=== PATIENT | female | born 1960 | race Caucasian/White ===

== ENCOUNTER → 2019-04-01 14:50 | Outpatient (BNVA) | payer OTHER, SELFPAY | PROVIDERS: Visit Provider Nurse Practitioner | DX: K04.7 Periapical abscess without sinus (principal); J11.1 Influenza due to unidentified influenza virus with other respiratory manifestations | CPT/HCPCS: 87804 ==

== ENCOUNTER 2019-09-21 15:42 | Emergency (ER) | payer SELFPAY ==
[2019-09-21 15:53] VITALS: BP 199/89; PULSE 81; RESP 14; TEMP 37.1; O2SAT 97; BMI 34.7
--- NOTE | 2019-09-21 16:07 | CTR_ITS ---
PROCEDURE INFORMATION: Exam: CT Abdomen And Pelvis With Contrast Exam date and time: 09/21/2019 4:26 PM Age: 58 years old Clinical indication: Abdominal pain; Localized; Prior surgery; Surgery date: 6+ months; Surgery type: Gb, appy, c-sect; Patient HX: C/O lower abd and flank pain w hematuria; Additional info: Lower abdominal pain TECHNIQUE: Imaging protocol: Computed tomography of the abdomen and pelvis with intravenous contrast. Radiation optimization: All CT scans at this facility use at least one of these dose optimization techniques: automated exposure control; mA and/or kV adjustment per patient size (includes targeted exams where dose is matched to clinical indication); or iterative reconstruction. Contrast material: OMNI 300; Contrast volume: 95 ml; Contrast route: INTRAVENOUS (IV); COMPARISON: US gall bladder [id number] 03/13/2017 7:49 AM RADIATION DOSE METRICS: Total DLP (mGy-cm): 1138.81 FINDINGS: Liver: There is no focal abnormality within the liver. Gallbladder and bile ducts: There has been a cholecystectomy. Pancreas: The pancreas is normal. Spleen: The spleen is normal. Adrenals: The adrenal glands are normal. Kidneys and ureters: The kidneys are normal. There is no evidence of renal or ureteral calcifications. There is no evidence of hydronephrosis. Stomach and bowel: There is no evidence of colitis/diverticulitis. Appendix: Not identified Intraperitoneal space: There is no evidence of free intraperitoneal fluid. Vasculature: Unremarkable. No abdominal aortic aneurysm. Lymph nodes: Unremarkable. No enlarged lymph nodes. Bladder: There is severe thickening of the urinary bladder wall with mucosal enhancement in some stranding in the adjacent fat. These findings most likely represent cystitis or urinary tract infection. Correlation with clinical findings is suggested. Reproductive: Unremarkable as visualized. Bones/joints: Unremarkable. No acute fracture. Soft tissues: Unremarkable. CT/CT abdomen pelvis w con* [id number] IMPRESSION: Findings which are worrisome for cystitis or urinary tract infection. Radiation Dose CTDIVOL = (mGy): DLP = 1138.81 (mGy-cm)
--- NOTE | 2019-09-21 16:10 | ED_ITS ---
HPI - Female Genitourinary General: Chief complaint: Urogenital-Female Stated complaint: urination problems/bloody Time Seen by Provider: 09/21/19 15:59 Source: patient Mode of arrival: ambulatory Limitations: no limitations History of Present Illness: HPI Narrative: Nichelle is a nice 58-year-old female who comes in with a complaint of abrupt onset lower abdominal pain that started yesterday. Patient states that this pain feels like when she is had a UTI in the past. She denies any vaginal discharge or bleeding. She is noticed blood in her urine but denies any flank pain but does have lower back pain. She is unaware of anything that makes her symptoms better or worse. She denies any fevers or chills or nausea or vomiting. Patient states she is perimenopausal. Her appendix is gone and she has had her gallbladder out and a tubal ligation. Associated symptoms: Reports abdominal pain; Deny headache(s), nausea or syncope Review of Systems Const: Denies: fever(s), chills, body aches, fatigue, malaise or diaphoresis Eyes: Denies: change in vision, blurry vision, blind spots, photophobia, eye discharge or eye redness ENMT: Denies: throat pain, odynophagia, hoarseness, swelling of lips/tongue, oral sores, ear or mastoid pain, ear discharge, change in hearing or nasal di scharge Card: Denies: chest pain, palpitations, irregular heart rhythm, edema, lightheadedness, syncope, pre-syncope, dyspnea on exertion or orthopnea Resp: Denies: dyspnea, productive cough, non-productive cough, wheezing, hemoptysis or chest congestion GI: Reports: abdominal pain; Denies: nausea, vomiting, hematemesis, coffee ground emesis, heartburn, diarrhea, constipation, GI cramping, hematochezia or melena : Reports: difficulty voiding, dysuria, urinary frequency and urinary urgency; Denies: flank pain Musc: Denies: neck pain, back pain, extremity pain, extremity swelling, joint pain, joint swelling, joint redness, joint warmth or joint stiffness Skin/Breast: Denies: rash, pruritus, erythema, skin tenderness or jaundice Neuro: Denies: headache(s), numbness in extremities, weakness in extremities, sensory changes, lack of coordination, difficulty walking, dizziness, vertigo, confusion, Slurred speech present or seizure-like activity Abel/Lymph: Denies: easy bruising, easy bleeding, petechiae, purpura or enlarged lymph nodes All/Imm: Denies: urticaria, throat swelling, tongue swelling, facial swelling or acute wheezing PFSH ED PFSH: Medical History H/O chronic hepatitis Patient [place] with Harvoni in 2018 [place] [facility] [place] Herpes simplex Obesity Vitamin D deficiency Physical Exam Const: COMMON NORMALS: no acute distress, patient oriented x3, no limitations, healthy appearing and well nourished GENERAL APPEARANCE: cooperative, well kempt and well developed HENMT: COMMON NORMALS: normocephalic, atraumatic, external ears normal, EAC's normal and Normal external nose present HEAD & SCALP: normal to inspection, normocephalic and atraumatic FACE & SINUS: normal facial exam and face symmetric NOSE: Normal external nose present and Normal nares present EXTERNAL EAR: Yes external ears normal EXTERNAL AUDITORY CANAL: EAC's normal MOUTH: Normal oral and palatal mucosa present, lip normal and tongue normal Eye: COMMON NORMALS: Equal, round and reactive pupils present and conjunctivae normal GENERAL EYE: appearance normal, both eyes and all related structures ALIGNMENT: Yes alignment normal PERIORBITAL: periorbital findings normal EYELID: eyelids normal CONJUNCTIVA: Yes conjunctivae normal SCLERA: sclerae normal PUPIL: Yes Equal, round and reactive pupils present Neck/C-Spine: COMMON NORMALS: full ROM, no lymphadenopathy, supple, no meningeal signs and no JVD GENERAL: Yes normal visual inspection and Yes trachea midline Chest: COMMONS NORMALS: normal inspection of the chest and normal palpation of entire chest wall Resp: COMMON NORMALS: normal respiratory effort, No retractions and No use of accessory muscles EFFORT & INSPECTION: Yes able to speak in complete sentences and Yes symmetric chest movement AUSCULTATION: no crackles, no rales, no rhonchi and no wheezes Cardio: COMMON NORMALS: no JVD, regular rate, regular rhythm, S1 normal heart sound present and S2 normal heart sound present RATE: regular rate RHYTHM: regular rhythm HEART SOUNDS: S1 normal heart sound present, S2 normal heart sound present, no click, no gallops, no murmurs, no rubs and abnormal split S2 GI: COMMON NORMALS: Soft to palpation and No hepatosplenomegaly present PALPATION: Yes Soft to palpation, Yes Tenderness to palpation present (GI) (Suprapubic area), No Guarding due to palpation present (GI), No Rigid due to palpation, Yes No hepatosplenomegaly present, No Hernia present, No Palpable mass present and No Pulsatile mass present : COMMON NORMALS: Yes no CVA tenderness BLADDER/KIDNEY EXAM: Yes no CVA tenderness EXTERNAL FEMALE EXAM: No Hernia present Back/Pelvis: COMMON NORMALS: no CVA tenderness, thoracic and lumbar spine normal to inspection, no thoracic nor lumbar tenderness and thoraco-lumbar ROM normal Extremity: COMMON NORMALS: normal to inspection, full ROM, capillary refill normal, no joint enlargement, no clubbing, cyanosis or edema and no calf tenderness Neuro: COMMON NORMALS: patient oriented x3, CN's II-XII intact bilaterally, moves all extremities, no focal motor deficits and no sensory deficits noted MENINGEAL SIGNS: Yes no meningeal signs SPEECH: speech normal Psych: COMMON NORMALS: mental status grossly normal, Normal thought process present, cooperative, normal affect, speech normal and activity/motor behavior normal APPEARANCE: Yes well kempt SPEECH: Yes normal speech THOUGHT PROCESS: Normal thought process present Skin: COMMON NORMALS: no rashes or lesions noted, turgor normal, no jaundice, no petechiae and no mottling GENERAL SKIN EXAM: no rashes or lesions noted and turgor normal Course Vital Signs: Vital signs: Vital Signs Temperature 98.7 F 09/21/19 15:53 Pulse Rate 81 09/21/19 15:53 Respiratory Rate 15 09/21/19 16:23 Blood Pressure 199/89 09/21/19 15:53 Pulse Oximetry 95 09/21/19 16:23 MDM - Female MDM Narrative: Medical decision making narrative: Patient is feeling better and is ready to go home. There is no sign of diverticulitis or acute intra- abdominal catastrophe. I will go ahead and discharge the patient home with Pyridium, Omnicef and I also have her follow-up with her primary care physician. Patient agrees this plan and denies having other questions or concerns. Lab Data: Attestation: I reviewed the patient's lab results. Labs: Lab Results 08/09/20 08/09/20 08/09/20 Range/Units 16:05 16:15 16:15 WBC 13.5 H (4.0-10.0) 10^3/ uL RBC 4.73 (4.1-5.3) 10^6/u L Hgb 13.8 (11.5-15.3) g/dL Hct 41.7 (37.0-47.0) % MCV 88.2 (81-99) fL MCH 29.2 (28.0-34.0) pg MCHC 33.1 (30.0-36.0) g/dL RDW 11.9 L (12.1-15.1) % Plt Count 208 (130-400) 10^3/c mm MPV 11.8 H (7.4-10.4) fL Neut % (Auto) 79.0 % Lymph % (Auto) 13.4 % Pinal % (Auto) 6.0 % Eos % (Auto) 1.0 % Baso % (Auto) 0.3 % Neut # (Auto) 10.62 H (1.8-7.7) 10^3/u L Lymph # (Auto) 1.8 (0.8-4.8) 10^3/u L Pinal # (Auto) 0.8 (0.2-0.9) 10^3/u L Eos # (Auto) 0.1 (0.0-0.8) 10^3/u L Baso # (Auto) 0.0 (0.0-0.1) 10^3/u L Nucleated RBC % (a uto) 0 % Nucleated RBCs # 0.0 /100WBC Sodium Cancelled Potassium Cancelled Chloride Cancelled Carbon Dioxide Cancelled Anion Gap Cancelled BUN Cancelled Creatinine Cancelled GFR Calculation Cancelled Glucose Cancelled Calculated Osmolal ity Cancelled Lactate Calcium Cancelled Total Bilirubin Cancelled AST Cancelled ALT Cancelled Alkaline Phosphata se Cancelled Total Protein Cancelled Albumin Cancelled Globulin Cancelled Urine Color Straw (Yellow) Urine Appearance Cloudy (CLEAR) Urine pH 5 (5-7) Ur Specific Gravit y 1.015 (1.005-1.030) Urine Protein 1+ H (Negative) Urine Glucose (UA) Norm (Normal) Urine Ketones Negative (Negative) Urine Blood 3+ H (Negative) Urine Nitrate Negative (Negative) Urine Bilirubin Neg (NEGATIVE) Urine Urobilinogen Norm (Negative) mg/dL Ur Leukocyte Ambreen ase 2+ H (Negative) Urine RBC 10-15 H (0-2) /hpf Urine WBC Too numerous to c nt H (0-5) /hpf Ur Squamous Epith Cells 5-10 H (0-5) Amorphous Sediment Not Reportable Urine Bacteria 1+ H (NONE) 09/21/19 09/21/19 09/21/19 Range/Units 16:15 16:36 16:36 WBC (4.0-10.0) 10^3/ uL RBC (4.1-5.3) 10^6/u L Hgb (11.5-15.3) g/dL Hct (37.0-47.0) % MCV (81-99) fL MCH (28.0-34.0) pg MCHC (30.0-36.0) g/dL RDW (12.1-15.1) % Plt Count (130-400) 10^3/c mm MPV (7.4-10.4) fL Neut % (Auto) % Lymph % (Auto) % Pinal % (Auto) % Eos % (Auto) % Baso % (Auto) % Neut # (Auto) (1.8-7.7) 10^3/u L Lymph # (Auto) (0.8-4.8) 10^3/u L Pinal # (Auto) (0.2-0.9) 10^3/u L Eos # (Auto) (0.0-0.8) 10^3/u L Baso # (Auto) (0.0-0.1) 10^3/u L Nucleated RBC % (a uto) % Nucleated RBCs # /100WBC Sodium 136 Potassium 4.2 Chloride 103 Carbon Dioxide 22 Anion Gap 15.2 BUN 16 Creatinine 0.7 GFR Calculation 86.6 L Glucose 97 Calculated Osmolal ity 278 L Lactate Cancelled 0.8 Calcium 9.9 Total Bilirubin 0.7 AST 14 ALT 10 Alkaline Phosphata se 80 Total Protein 7.2 Albumin 4.8 Globulin 2.4 Urine Color (Yellow) Urine Appearance (CLEAR) Urine pH (5-7) Ur Specific Gravit y (1.005-1.030) Urine Protein (Negative) Urine Glucose (UA) (Normal) Urine Ketones (Negative) Urine Blood (Negative) Urine Nitrate (Negative) Urine Bilirubin (NEGATIVE) Urine Urobilinogen (Negative) mg/dL Ur Leukocyte Ambreen ase (Negative) Urine RBC (0-2) /hpf Urine WBC (0-5) /hpf Ur Squamous Epith Cells (0-5) Amorphous Sediment Urine Bacteria (NONE) Imaging Data: CT Abd/Pel: Attestation: I personally reviewed and interpreted this imaging study as follows: Radiologist's impression: [address] [address] [address] Scan Report Signed Patient: Nichelle Browning #: [id number] : 1960Acct#:[id number] Age/Sex: 58 / FADM Date: 09/21/19 Loc: ERRoom/Bed: Attending Dr: Ordering Provider/Ordering MD: Jennifer Cox DO Date of Service: 09/21/19 Procedure(s): CT abdomen pelvis w con* [id number] Accession Number(s): [id number] Report Number: [id number] PROCEDURE INFORMATION: Exam: CT Abdomen And Pelvis With Contrast Exam date and time: 09/21/2019 4:26 PM Age: 58 years old Clinical indication: Abdominal pain; Localized; Prior surgery; Surgery date: 6+ months; Surgery type: Gb, appy, c-sect; Patient HX: C/O lower abd and flank pain w hematuria; Additional info: Lower abdominal pain TECHNIQUE: Imaging protocol: Computed tomography of the abdomen and pelvis with intravenous contrast. Radiation optimization: All CT scans at this facility use at least one of these dose optimization techniques: automated exposure control; mA and/or kV adjustment per patient size (includes targeted exams where dose is matched to clinical indication); or iterative reconstruction. Contrast material: OMNI 300; Contrast volume: 95 ml; Contrast route: INTRAVENOUS (IV); COMPARISON: US gall bladder [id number] 03/13/2017 7:49 AM RADIATION DOSE METRICS: Total DLP (mGy-cm): 1138.81 FINDINGS: Liver: There is no focal abnormality within the liver. Gallbladder and bile ducts: There has been a cholecystectomy. Pancreas: The pancreas is normal. Spleen: The spleen is normal. Adrenals: The adrenal glands are normal. Kidneys and ureters: The kidneys are normal. There is no evidence of renal or ureteral calcifications. There is no evidence of hydronephrosis. Stomach and bowel: There is no evidence of colitis/diverticulitis. Appendix: Not identified Intraperitoneal space: There is no evidence of free intraperitoneal fluid. Vasculature: Unremarkable. No abdominal aortic aneurysm. Lymph nodes: Unremarkable. No enlarged lymph nodes. Bladder: There is severe thickening of the urinary bladder wall with mucosal enhancement in some stranding in the adjacent fat. These findings most likely represent cystitis or urinary tract infection. Correlation with clinical findings is suggested. Reproductive: Unremarkable as visualized. Bones/joints: Unremarkable. No acute fracture. Soft tissues: Unremarkable. CT/CT abdomen pelvis w con* [id number] IMPRESSION: Findings which are worrisome for cystitis or urinary tract infection. Radiation Dose CTDIVOL = (mGy): DLP = 1138.81 (mGy-cm) Dictated By:Fernando Martini Signed By:Jolene Martini Date/Time:09/21/191700 DD/ 99 Discharge Plan Discharge Patient Disposition: Home Clinical Impression: Cystitis Condition: Stable Prescriptions: New phenazopyridine [Pyridium] 200 mg tablet 200 mg PO Q8H PRN (Reason: pain) 3 Days Qty: 9 RF: 0 cefdinir 300 mg capsule 300 mg PO Q12H 10 Days Qty: 20 RF: 0 ondansetron HCl [Zofran] 4 mg tablet 4 mg PO Q6H PRN (Reason: nausea and vomiting) Qty: 20 RF: 0 No Action No Known Home Medications RF: 0 Discharge Orders: Discharge Order (Routine); Ordered 09/21/19 Ordered By: Jennifer Cox Referrals: PONCHO Foreman, LDR RN [Primary Care Provider] - 1-3 days Discharge Diet: Advance as tolerated Discharge Activity: Increase activity as tolerated Patient Instructions: Urinary Tract Infection in Women (ED) Activity Restrictions/Additional Instructions: Please return to the ER immediately for any of the signs or symptoms listed on your discharge instruction sheets, worsening/changing of your symptoms, you are not getting better as quickly as expected, or for ANY other cause or concerns. Coding Level of Care Code ED Sas Etl Developer for Araceli Fwd Exam Comprehensive
[2019-09-21] MEDS: ondansetron 2 mg/ML SDV 2 mL 4 MG IM (16:22)
[2019-09-21 16:23] VITALS: RESP 15; O2SAT 95
[2019-09-21] MEDS: morphine 4 mg/mL SDV 1 mL IVP (16:23)
[2019-09-21 16:25] LABS: Add Urine Microscopic? YES; Bilirubin Urine Neg (NEGATIVE); Blood Urine 3+ (Negative); Glucose Urine UA Norm (Normal); Ketones Urine Negative (Negative); Leukocyte Esterase Urine 2+ (Negative); Nitrate Urine Negative (Negative); Protein Urine 1+ (Negative); Specific Gravity, Urine 1.015 (1.005-1.030); Urine Appearance Cloudy (CLEAR); Urine Color Straw (Yellow); Urobilinogen Urine Norm (Negative); pH Urine 5 (5-7)
[2019-09-21 16:26] LABS: Add Urine Culture? Yes; Bacteria Urine 1+; WBC Urine TOO NUMEROUS TO CNT /hpf (0-5)
[2019-09-21 16:28] LABS: Basophils % 0.3 %; Eosinophils # 0.1 10^3/uL (0.0-0.8); Hematocrit 41.7 % (37.0-47.0); Hemoglobin 13.8 g/dL (11.5-15.3); Lymphocytes # 1.8 10^3/uL (0.8-4.8); Lymphocytes % 13.4 %; Mean Corpuscular HGB Conc 33.1 g/dL (30.0-36.0); Mean Corpuscular Hemoglobin 29.2 pg (28.0-34.0); Mean Corpuscular Volume 88.2 fL (81-99); Mean Platelet Volume 11.8 fL (7.4-10.4); Monocytes # 0.8 10^3/uL (0.2-0.9); Neutrophils # 10.62 10^3/uL (1.8-7.7); Nucleated Red Blood Cells % 0 %; Platelet Count 208 10^3/cmm (130-400); Red Blood Count 4.73 10^6/uL (4.1-5.3); Red Cell Distribution Width 11.9 % (12.1-15.1); White Blood Count 13.5 10^3/uL (4.0-10.0)
[2019-09-21] MEDS: iohexol 300 mg/mL 100 mL Btl IV (16:36)
[2019-09-21 16:59] LABS: Lactate (Lactic Acid level) 0.8 mmol/L (0.5-2.2)
[2019-09-21 17:00] LABS: Alanine Aminotransferase 10 U/L (0-33); Albumin Level 4.8 g/dL (3.5-5.2); Alkaline Phosphatase 80 IU/L (35-105); Anion Gap 15.2 (5-19); Aspartate Amino Transferase 14 U/L (0-32); Blood Urea Nitrogen 16 mg/dL (6-20); Calcium 9.9 mg/dL (8.5-10.5); Carbon Dioxide 22 mmol/L (22-29); Chloride 103 mmol/L (98-107); Globulin 2.4 g/dL (1.3-4.6); Glomerular Filtration Rate 86.6 mL/min (90-130); Glucose 97 mg/dL (65-115); Osmolality Calculated 278 mOsm/kg (285-295); Potassium 4.2 mmol/L (3.5-5.1); Sodium 136 mmol/L (136-145); Total Bilirubin 0.7 mg/dL (0.15-1.2); Total Protein 7.2 g/dL (6.6-8.7)
[2019-09-21] MEDS: cefTRIAXone 1,000 MG in sodium chloride 0.9% (plus) 50 ML 100 MG IV (17:16)
[2019-09-21] MEDS: phenazopyridine 100 mg Tablet 200 MG PO (17:18)
[2019-09-21 17:55] VITALS: BP 132/80; PULSE 70; RESP 16; O2SAT 98
[2019-09-21 18:25] LABS: Reflex Lactate Order REFLEX LACTIC ORDERD
== END 2019-09-21 17:55 | disposition home or self-care (01) ==
PROVIDERS: Emergency Medicine; Emergency Provider Emergency Medicine; PCP Nurse Practitioner Family
DX: N30.90 Cystitis, unspecified without hematuria (principal)
CPT/HCPCS: 12345; 36415; 74177; 80053; 81001; 83605; 85025; 87077; 87086; 87186; 96365; 96372; 96375; 99283; 99284; J0696; J2270; J2405; J7030; Q9967

== ENCOUNTER → 2019-10-03 09:01 | Outpatient (BNVA) | payer SELFPAY | PROVIDERS: PCP Nurse Practitioner Family; Visit Provider Nurse Practitioner Family | DX: M79.601 Pain in right arm (principal) | CPT/HCPCS: 73090 ==

== ENCOUNTER → 2020-02-19 11:51 | Outpatient (BNVA) | payer OTHER, SELFPAY | PROVIDERS: PCP Nurse Practitioner Family; Visit Provider Nurse Practitioner Family | DX: Z79.899 Other long term (current) drug therapy (principal); R53.83 Other fatigue; Z13.6 Encounter for screening for cardiovascular disorders; Z12.31 Encounter for screening mammogram for malignant neoplasm of breast; E66.9 Obesity, unspecified | CPT/HCPCS: 80053; 80061; 81003; 82306; 83036; 84443; 85025 ==

== ENCOUNTER 2020-04-08 13:04 | Outpatient (CLI) | payer OTHER, SELFPAY ==
--- NOTE | 2020-04-08 13:30 | MM_ITS ---
WS: [id number] Exam: [place] [id number] Date/Time of Exam: 04/08/2020 1:38 PM Reason For Exam: Z12.31 - Encounter for screening mammogram for malignant neoplasm of breast VIEWS: MLO and CC views both breasts. Comparison made with prior exam of 10/05/2014 and 05/19/2013. Findings: There was no sign of mass, architectural distortion or suspicious calcification in either breast. Sc attered fibroglandular densities MM/[place] [id number] Impression: BI-RADS: 2-Benign FOLLOW-UP: 1 Year Follow-up This mammogram was also analyzed by the Computer Aided Detection System R2 Imag e Readers' Advisory Service Librarian.
== END 2020-04-08 13:05 | disposition home or self-care (01) ==
LOC: RADSHAW 13:08
PROVIDERS: PCP Nurse Practitioner Family; Visit Provider Nurse Practitioner Family
DX: Z12.31 Encounter for screening mammogram for malignant neoplasm of breast (principal)
CPT/HCPCS: 77067

== ENCOUNTER → 2020-04-23 11:36 | Outpatient (BNVA) | payer OTHER, SELFPAY | PROVIDERS: PCP Nurse Practitioner Family; Visit Provider Nurse Practitioner Family | DX: Z87.19 Personal history of other diseases of the digestive system (principal) | CPT/HCPCS: 87522 ==

== ENCOUNTER → 2021-02-28 13:41 | Outpatient (BNVA) | payer OTHER, SELFPAY | PROVIDERS: PCP Nurse Practitioner Family; Visit Provider Nurse Practitioner Family | DX: Z20.822 Contact with and (suspected) exposure to COVID-19 (principal) | CPT/HCPCS: 87635 ==

== ENCOUNTER → 2021-04-21 11:10 | Outpatient (BNVA) | payer OTHER, SELFPAY | PROVIDERS: PCP Nurse Practitioner Family; Visit Provider Nurse Practitioner Family | DX: Z79.899 Other long term (current) drug therapy (principal); R53.83 Other fatigue; Z13.6 Encounter for screening for cardiovascular disorders; E55.9 Vitamin D deficiency, unspecified; Z12.31 Encounter for screening mammogram for malignant neoplasm of breast; D17.5 Benign lipomatous neoplasm of intra-abdominal organs | CPT/HCPCS: 80053; 80061; 81003; 82306; 83036; 84443; 85025 ==

== ENCOUNTER → 2021-05-24 10:33 | Outpatient (BNVA) | payer OTHER, SELFPAY | PROVIDERS: PCP Nurse Practitioner Family; Visit Provider Family Medicine | DX: M79.671 Pain in right foot (principal) | CPT/HCPCS: 73620 ==

== ENCOUNTER → 2023-03-26 11:20 | Outpatient (BNVA) | payer OTHER, SELFPAY | PROVIDERS: PCP Nurse Practitioner; Visit Provider Nurse Practitioner Family | DX: E66.09 Other obesity due to excess calories (principal); Z68.32 Body mass index [BMI] 32.0-32.9, adult; Z79.899 Other long term (current) drug therapy; R53.83 Other fatigue; Z01.89 Encounter for other specified special examinations; Z13.6 Encounter for screening for cardiovascular disorders; D64.9 Anemia, unspecified | CPT/HCPCS: 80053; 80061; 81003; 82607; 82746; 83036; 84439; 84443; 84481; 85025 ==

== ENCOUNTER 2023-05-15 10:32 | Outpatient (CLI) | payer OTHER, SELFPAY ==
--- NOTE | 2023-05-15 10:30 | MM_ITS ---
WS: [id number] BILATERAL 3D TOMOSYNTHESIS DIGITAL SCREENING MAMMOGRAPHY WITH CAD CLINICAL INFORMATION: Z12.31 - Encounter for screening mammogram for malignant ... HISTORY: Screening mammogram. No current complaints. COMPARISON: 2020 TECHNIQUE: Bilateral CC and MLO views. FINDINGS: Scattered fibroglandular densities bilaterally. No suspicious focal mass, asymmetry, calcifications, or architectural distortion. No evidence of malignancy. A few tiny incidental punctate calcifications . IMPRESSION: MM/[place] [id number] BI-RADS: 2-Benign FOLLOW UP: 1 Year Follow-up Recommend return to annual screening mammography.
== END 2023-05-15 10:33 | disposition home or self-care (01) ==
LOC: MOBLMAM 10:34
PROVIDERS: PCP Nurse Practitioner Family; Visit Provider Nurse Practitioner Family
DX: Z12.31 Encounter for screening mammogram for malignant neoplasm of breast (principal)
CPT/HCPCS: 77063; 77067

== ENCOUNTER → 2023-06-07 13:40 | Outpatient (BNVA) | payer OTHER, SELFPAY | PROVIDERS: PCP Nurse Practitioner Family; Visit Provider Nurse Practitioner Family | DX: E55.9 Vitamin D deficiency, unspecified (principal); D64.9 Anemia, unspecified | CPT/HCPCS: 82306; 82728; 83550 ==

== ENCOUNTER → 2024-04-08 14:13 | Outpatient (BNVA) | payer OTHER, SELFPAY | PROVIDERS: PCP Nurse Practitioner Family; Visit Provider Nurse Practitioner Family | DX: E55.9 Vitamin D deficiency, unspecified (principal); J30.89 Other allergic rhinitis; Z79.899 Other long term (current) drug therapy | CPT/HCPCS: 80053; 80061; 81003; 82306; 83036; 84443; 85025 ==

== ENCOUNTER → 2024-04-15 11:16 | Outpatient (BNVA) | payer OTHER, SELFPAY | PROVIDERS: PCP Nurse Practitioner Family; Visit Provider Nurse Practitioner Family | DX: R79.89 Other specified abnormal findings of blood chemistry (principal) | CPT/HCPCS: 82728; 83550; 85025 ==

== ENCOUNTER → 2024-05-20 14:35 | Outpatient (BNVA) | payer OTHER, SELFPAY | PROVIDERS: PCP Nurse Practitioner Family; Visit Provider Nurse Practitioner Family | DX: Z87.19 Personal history of other diseases of the digestive system (principal) | CPT/HCPCS: 80053; 85025 ==

== ENCOUNTER 2024-06-18 10:00 | Outpatient (CLI) | payer OTHER, SELFPAY ==
--- NOTE | 2024-06-18 10:00 | MM_ITS ---
WS: [id number] BILATERAL SCREENING DIGITAL TOMOSYNTHESIS MAMMOGRAM WITH CAD HISTORY: Z12.31 - Encounter for screening mammogram for malignant ... COMPARISON: 05/15/2023, 04/08/2020 Bilateral CC and MLO views with tomosynthesis and synthetic mammography submitted. Computer aided detection analyzed. Breast composition: There are scattered areas of fibroglandular density. No suspicious masses, microcalcifications or architectural distortion. MM/MM scr BI tomosynthesis [id number] IMPRESSION: BI-RADS: 2 - Benign. FOLLOW UP: 1 Year Follow-up
== END 2024-06-18 10:01 | disposition home or self-care (01) ==
LOC: MOBLMAM 10:00
PROVIDERS: PCP Nurse Practitioner Family; Visit Provider Nurse Practitioner Family
DX: Z12.31 Encounter for screening mammogram for malignant neoplasm of breast (principal); R92.323 Mammographic fibroglandular density, bilateral breasts
CPT/HCPCS: 77063; 77067